=== PATIENT | male | born 1955 | race Caucasian/White ===

== ENCOUNTER 2021-03-03 12:45 | Emergency (ER) | payer MEDICARE ==
[~2021-03-03] VITALS: Ht 180.3 cm; Wt 104.3 kg
[2021-03-03] MEDS ORDERED: CASIRIVIMAB/IMDEVIMAB 10 ML in SODIUM CHLORIDE 0.9% 100 ML IV ONE (13:00)
[2021-03-03] MEDS ORDERED: TESSALON PERLE100 MG PO (13:54)
[2021-03-03] MEDS ORDERED: PROAIR DIGIHAL90 MCG INH (13:59)
== END 2021-03-03 14:00 | disposition home or self-care (01) ==
LOC: ER 12:55
DX: U07.1 COVID-19 (principal); I10 Essential (primary) hypertension; E11.9 Type 2 diabetes mellitus without complications; K21.9 Gastro-esophageal reflux disease without esophagitis
CPT/HCPCS: 99283

== ENCOUNTER → 2024-12-07 | Day surgery (SDC) | payer MEDICARE ==
[2024-11-28 08:50] LABS: BASOPHILS % 0.5 % (0.0-1.0); EOSINOPHILS % 3.3 % (0.0-6.0); LYMPHOCYTES % 16.2 % (18.0-39.1); MONOCYTES % 11.1 % (4.4-11.3); NEUTROPHILS % 68.5 % (38.7-80.0); RED CELL DISTRIBUTION WIDTH 13.9 % (11.7-14.4)
[~2024-12-07] MED LIST: ACETAMINOPHEN 1000 MG/100 ML 100 ML IV ONE; CIPROFLOXACIN500 MG PO; DEXAMETHASONE SOD PHOS INJ 4 MG/ML SDV ONE; DIALYVITE 800800 MCG; FARXIGA10 MG; FENTANYL CITRATE/PF 100MCG/2 ML INJ ONE; GLIPIZIDE5 MG PO; GLUCAGON FOR INJ 1 MG VIAL ONE; HYDROMORPHONE 2MG/ML ONE; HYOSCYAMINE SULFATE 0.5 MG/ML INJ ONE; KETOROLAC TROMETHAMINE 30 MG/ML VIAL ONE; LANTUS 3ML100 UNITS/ SC; LIDOCAINE HCL 2% LOCAL INJ 5 ML SDV VIAL INJ ONE; LOSARTAN POTAS100 MG PO; METFORMIN HCL500 MG PO; METOCLOPRAMIDE HCL 10 MG/2ML VIAL ONE; METRONIDAZOLE500 MG PO; MIDAZOLAM HCL 2 MG/2 ML VIAL ONE; NIFEDIPINE10 MG PO; ONDANSETRON HCL INJ 2MG/ML 2ML 2 MG/ML VIAL ONE; PANTOPRAZOLE SO40 MG PO; PROAIR DIGIHAL90 MCG INH; PROPOFOL IV EMULSION 10 MG/ML 20 ML VIAL ONE; PROPOFOL IV EMULSION 50 ML IV ONE; PROTONIX20 MG PO; ROCURONIUM BROMIDE 1 ML IV ONE; SIMVASTATIN40 MG PO; SODIUM BICARBO650 MG PO; SUGAMMADEX SODIUM 200 MG/2 ML VIAL IV ONE; TESSALON PERLE100 MG PO
[2024-12-07] MEDS: LACTATED RINGER'S 1,000 ML BAG IV ONE (08:37)
[2024-12-07 10:58] VITALS: BP 119/67; PULSE 77; RESP 18; O2SAT 97
== END | disposition home or self-care (01) ==
LOC: OR 07:33
PROVIDERS: ATTEND Internal Medicine Gastroenterology
DX: K21.9 Gastro-esophageal reflux disease without esophagitis (principal); D12.3 Benign neoplasm of transverse colon; D12.4 Benign neoplasm of descending colon; K29.70 Gastritis, unspecified, without bleeding; K31.89 Other diseases of stomach and duodenum; K20.90 Esophagitis, unspecified without bleeding; K44.9 Diaphragmatic hernia without obstruction or gangrene; K57.30 Diverticulosis of large intestine without perforation or abscess without bleeding; K64.8 Other hemorrhoids; Z98.84 Bariatric surgery status; G47.33 Obstructive sleep apnea (adult) (pediatric); E11.9 Type 2 diabetes mellitus without complications; I45.10 Unspecified right bundle-branch block; I10 Essential (primary) hypertension; Z71.89 Other specified counseling; E78.5 Hyperlipidemia, unspecified; Z01.810 Encounter for preprocedural cardiovascular examination; Z01.812 Encounter for preprocedural laboratory examination; Z79.84 Long term (current) use of oral hypoglycemic drugs; Z79.85 Long-term (current) use of injectable non-insulin antidiabetic drugs; Z79.4 Long term (current) use of insulin; Z79.899 Other long term (current) drug therapy; Z68.30 Body mass index [BMI] 30.0-30.9, adult; Z71.3 Dietary counseling and surveillance; Z91.81 History of falling; Z85.828 Personal history of other malignant neoplasm of skin
CPT/HCPCS: 36415 ×2; 43239; 45385; 82948; 85025; 93005; J1610; J1980; J2003; J2470; J2704; J2765; J3010; J7121; 45378; J1100; J1171; J1885; J2250; J2405

== ENCOUNTER 2024-12-08 09:10 | Inpatient (IN) | payer MEDICARE ==
[~2024-12-08] VITALS: Ht 180.3 cm; Wt 93.2 kg
[~2024-12-08 09:10] MED LIST changes: -ACETAMINOPHEN 1000 MG/100 ML 100 ML IV ONE; -CIPROFLOXACIN500 MG PO; -DEXAMETHASONE SOD PHOS INJ 4 MG/ML SDV ONE; -FENTANYL CITRATE/PF 100MCG/2 ML INJ ONE; -GLUCAGON FOR INJ 1 MG VIAL ONE; -HYDROMORPHONE 2MG/ML ONE; -HYOSCYAMINE SULFATE 0.5 MG/ML INJ ONE; -KETOROLAC TROMETHAMINE 30 MG/ML VIAL ONE; -LANTUS 3ML100 UNITS/ SC; -LIDOCAINE HCL 2% LOCAL INJ 5 ML SDV VIAL INJ ONE; -METOCLOPRAMIDE HCL 10 MG/2ML VIAL ONE; -METRONIDAZOLE500 MG PO; -MIDAZOLAM HCL 2 MG/2 ML VIAL ONE; -ONDANSETRON HCL INJ 2MG/ML 2ML 2 MG/ML VIAL ONE; -PROPOFOL IV EMULSION 10 MG/ML 20 ML VIAL ONE; -PROPOFOL IV EMULSION 50 ML IV ONE; -ROCURONIUM BROMIDE 1 ML IV ONE; -SODIUM BICARBO650 MG PO; -SUGAMMADEX SODIUM 200 MG/2 ML VIAL IV ONE
[2024-12-08 09:39] LABS: BASOPHILS % 0.2 % (0.0-1.0); EOSINOPHILS % 0.0 % (0.0-6.0); LYMPHOCYTES % 1.5 % (18.0-39.1); MONOCYTES % 8.6 % (4.4-11.3); NEUTROPHILS % 89.2 % (38.7-80.0); RED CELL DISTRIBUTION WIDTH 13.6 % (11.7-14.4)
[2024-12-08] MEDS: SODIUM CHLORIDE 0.9% 1000ML 1,000 ML IV STA ×3 (09:46→11:04)
[2024-12-08] MEDS: ONDANSETRON HCL INJ 2MG/ML 2ML 2 MG/ML VIAL IV STA (09:47)
[2024-12-08 09:50] LABS: INR 0.94
[2024-12-08 09:52] LABS: EST GLOMERULAR FILTRATION RATE 30.0 ML/MIN (>=60)
[2024-12-08 10:29] LABS: ABG BASE EXCESS -15.0 mmol/L (-2 - 3); ABG HCO3 12 mmol/L (22-26); ABG OXYGEN SATURATION 99.0 % (95-98); ABG PCO2 25 mmHg (35-45); ABG PH 7.29 (7.35-7.45); ABG PO2 100 mmHg (80-105); ABG TCO2 13
[2024-12-08] MEDS ORDERED: DEXTROSE 50% SYRINGE 50 ML IV PRN ×2 (10:45→17:30)
[2024-12-08] MEDS ORDERED: INSULIN REGULAR, HUMAN 3ML VL 100 UNIT in SODIUM CHLORIDE 0.45% 100 ML 100 ML IV SCH (10:45)
[2024-12-08] MEDS: INSULIN REGULAR, HUMAN 100 UNIT/1 ML IV ONE (11:19)
[2024-12-08] MEDS ORDERED: ONDANSETRON HCL INJ 2MG/ML 2ML 2 MG/ML VIAL IV PRN ×2 (11:45→17:30)
[2024-12-08 11:52] LABS: BAND NEUTROPHILS % (MANUAL) 7 %; LYMPHOCYTES % (MANUAL) 1 % (19-48); MONOCYTES % (MANUAL) 4 % (3.4-9.0); NEUTROPHILS % (MANUAL) 88 % (40-74); PLATELET ESTIMATE ADEQUATE; PLATELET MORPHOLOGY COMMENT NORMAL; RBC MORPHOLOGY COMMENT NORMAL
[2024-12-08] MEDS ORDERED: SODIUM BICARBONATE 8.4% SYRING 50 ML in SODIUM CHLORIDE 0.45% 1,000 ML IV SCH (12:00)
[2024-12-08] MEDS ORDERED: METRONIDAZOLE 500MG/NS 100ML 100 ML IV SCH (12:00)
[2024-12-08 13:02] LABS: LEUKOCYTE ESTERASE ,URINE NEGATIVE (NEGATIVE); PROTEIN,URINE DIPSTICK 1+ (NEGATIVE)
[2024-12-08 13:03] LABS: URINE UROBILINOGEN 0.2 mg/dL (0.2 - 1)
[2024-12-08 13:10] LABS: EPITHELIAL CELLS,URINE FEW /LPF; WBC,URINE (MAN) 0-5 /HPF (0-5)
[2024-12-08] MEDS: METRONIDAZOLE 500MG/NS 100ML 100 ML IV SCH (14:35)
[2024-12-08 14:44] VITALS: TEMP 97.6
[2024-12-08] MEDS: SODIUM BICARBONATE 8.4% SYRING 50 ML in SODIUM CHLORIDE 0.45% 1,000 ML IV SCH (16:46)
[2024-12-08] MEDS: SODIUM CHLORIDE 0.9% 500ML 500 ML IV ONE (17:11)
[2024-12-08] MEDS ORDERED: SIMETHICONE 80 MG CHEW PO PRN (17:30)
[2024-12-08] MEDS ORDERED: ALBUTEROL/IPRATROPIUM 3 ML NEB NEB PRN (17:30)
[2024-12-08] MEDS ORDERED: DOCUSATE SODIUM 100 MG CAP PO PRN (17:30)
[2024-12-08] MEDS ORDERED: HYDRALAZINE HCL 20 MG/ML VIAL IV PRN (17:30)
[2024-12-08] MEDS ORDERED: BENZONATATE 100 MG CAP PO PRN (17:30)
[2024-12-08] MEDS ORDERED: DIPHENHYDRAMINE HCL 25 MG CAP PO PRN (17:30)
[2024-12-08] MEDS ORDERED: MELATONIN 5 MG TABLET PO PRN (17:30)
[2024-12-08] MEDS: NIFEDIPINE CR 30 MG TAB PO SCH (18:47)
[2024-12-08 18:52] VITALS: PULSE 110; RESP 18
[2024-12-08] MEDS: SIMVASTATIN 40 MG TAB PO SCH (21:00)
[2024-12-09] VITALS (27 sets, daily range): BP systolic 115–169; BP diastolic 57–76; PULSE 86–115; RESP 16–36; TEMP 97.9–98.6; O2SAT 89–99
[2024-12-09] MEDS: ACETAMINOPHEN 325 MG TAB PO PRN (08:00)
[2024-12-09] MEDS: PANTOPRAZOLE SOD 40 MG TABEC PO SCH (08:00)
[2024-12-09 08:22] LABS: BASOPHILS % 0.1 % (0.0-1.0); EOSINOPHILS % 0.0 % (0.0-6.0); LYMPHOCYTES % 1.3 % (18.0-39.1); MONOCYTES % 5.5 % (4.4-11.3); NEUTROPHILS % 91.4 % (38.7-80.0); RED CELL DISTRIBUTION WIDTH 14.1 % (11.7-14.4)
[2024-12-09 08:37] LABS: CHOL/HDL RATIO 2.4 (3.9-4.7); EST GLOMERULAR FILTRATION RATE 38.0 ML/MIN (>=60); LDL CHOLESTEROL 55.0 MG/DL (60-130)
[2024-12-09] MEDS ORDERED: LOSARTAN POTASSIUM 100 MG TAB PO SCH (09:00)
[2024-12-09] MEDS: POTASSIUM CHLORIDE 10MEQ/100ML 200 ML IV ONE (09:28)
[2024-12-09] MEDS ORDERED: HYDROCODONE/APAP 5MG-325MG TAB PO PRN (11:30)
[2024-12-09] MEDS ORDERED: ONDANSETRON HCL INJ 2MG/ML 2ML 2 MG/ML VIAL IV PRN (11:30)
[2024-12-09] MEDS ORDERED: Morphine 4mg INJECTION 4 MG/ML INJ IV PRN (11:45)
[2024-12-09] MEDS: LACTATED RINGER'S 1,000 ML INJ SCH (12:08)
[2024-12-09] MEDS: POTASSIUM CHLORIDE 20 MEQ TAB CR PO PRN (12:11)
[2024-12-09] MEDS: INSULIN REGULAR, HUMAN 3ML VL 100 UNIT in SODIUM CHLORIDE 0.9% 99 ML IV PRN (12:18)
[2024-12-09] MEDS: ENOXAPARIN SOD INJ 40 MG/0.4 ML SYR SC SCH (17:24)
[2024-12-09 17:44] LABS: EST GLOMERULAR FILTRATION RATE 34.0 ML/MIN (>=60)
[2024-12-10] VITALS (24 sets, daily range): BP systolic 100–135; BP diastolic 51–74; PULSE 70–116; RESP 22–36; TEMP 97.8–98.4; O2SAT 90–99
[2024-12-10 05:12] LABS: BASOPHILS % 0.3 % (0.0-1.0); EOSINOPHILS % 0.3 % (0.0-6.0); LYMPHOCYTES % 6.1 % (18.0-39.1); MONOCYTES % 6.9 % (4.4-11.3); NEUTROPHILS % 86.1 % (38.7-80.0); RED CELL DISTRIBUTION WIDTH 14.4 % (11.7-14.4)
[2024-12-10 05:54] LABS: EST GLOMERULAR FILTRATION RATE 34.0 ML/MIN (>=60)
[2024-12-10] MEDS: POTASSIUM CHLORIDE 20MEQ/100ML 100 ML IV ONE (08:34)
[2024-12-10 10:47] LABS: EOSINOPHILS % (MANUAL) 1 % (0-7); LYMPHOCYTES % (MANUAL) 6 % (19-48); MONOCYTES % (MANUAL) 6 % (3.4-9.0); NEUTROPHILS % (MANUAL) 87 % (40-74)
[2024-12-10 10:48] LABS: PLATELET ESTIMATE ADEQUATE; PLATELET MORPHOLOGY COMMENT NORMAL
[2024-12-10 15:32] LABS: EST GLOMERULAR FILTRATION RATE 32.0 ML/MIN (>=60)
[2024-12-10] MEDS ORDERED: DEXTROSE 50% SYRINGE 50 ML IV PRN (16:45)
[2024-12-10 17:42] LABS: T3 UPTAKE 40.95 % (22.5-37.0)
[2024-12-11] VITALS (25 sets, daily range): BP systolic 107–141; BP diastolic 50–86; PULSE 60–102; RESP 18–30; TEMP 97.5–98.8; O2SAT 86–98
[2024-12-11] MEDS: INSULIN REGULAR, HUMAN 3ML VL 100 UNIT in SODIUM CHLORIDE 0.9% 100 ML IV SCH (07:28)
[2024-12-11 08:38] LABS: BASOPHILS % 0.4 % (0.0-1.0); EOSINOPHILS % 4.9 % (0.0-6.0); LYMPHOCYTES % 6.0 % (18.0-39.1); MONOCYTES % 9.0 % (4.4-11.3); NEUTROPHILS % 79.3 % (38.7-80.0); RED CELL DISTRIBUTION WIDTH 14.6 % (11.7-14.4)
[2024-12-11 08:54] LABS: EST GLOMERULAR FILTRATION RATE 32.0 ML/MIN (>=60)
[2024-12-11] MEDS: DEXTROSE 5%/0.45% SOD CHL 1,000 ML IV ONE (15:44)
[2024-12-11] MEDS: ARTIFICIAL TEARS (OPTH) 15 ML BTL OU SCH (16:23)
[2024-12-11] MEDS ORDERED: DEXTROSE 5%/0.45% SOD CHL 1,000 ML IV SCH (16:45)
[2024-12-11] MEDS: SODIUM BICARBONATE 650 MG TAB PO SCH (16:49)
[2024-12-11] MEDS ORDERED: DEXTROSE 5%/0.45% SOD CHL 1,000 ML IV ONE (18:45)
[2024-12-11] MEDS: INSULIN GLARGINE 100 UNITS/ML VIAL SQ SCH (20:08)
[2024-12-12] VITALS (12 sets, daily range): BP systolic 99–132; BP diastolic 62–80; PULSE 56–81; RESP 22–38; TEMP 97.9–98.7; O2SAT 87–94
[2024-12-12] MEDS: DEXTROSE 5%/0.45% SOD CHL 1,000 ML IV SCH (04:30)
[2024-12-12 06:33] LABS: BASOPHILS % 0.3 % (0.0-1.0); EOSINOPHILS % 6.8 % (0.0-6.0); LYMPHOCYTES % 9.4 % (18.0-39.1); MONOCYTES % 11.1 % (4.4-11.3); NEUTROPHILS % 72.1 % (38.7-80.0); RED CELL DISTRIBUTION WIDTH 14.2 % (11.7-14.4)
[2024-12-12 06:53] LABS: EST GLOMERULAR FILTRATION RATE 36.0 ML/MIN (>=60)
[2024-12-12] MEDS: POTASSIUM CHLORIDE 20 MEQ TAB CR PO ONE (11:21)
[2024-12-12] MEDS: INSULIN LISPRO 100 UNIT/1 ML 3ML VIAL SQ ONE (14:22)
[2024-12-12] MEDS ORDERED: LANTUS 3ML100 UNITS/ SC (14:32)
[2024-12-12] MEDS ORDERED: SODIUM BICARBO650 MG PO (14:32)
[2024-12-12] MEDS ORDERED: METRONIDAZOLE500 MG PO (14:32)
[2024-12-12] MEDS ORDERED: CIPROFLOXACIN500 MG PO (14:32)
[2024-12-12] MEDS ORDERED: INSULIN GLARGINE 100 UNITS/ML VIAL SQ SCH (21:00)
== END 2024-12-12 16:40 | disposition home or self-care (01) | DRG 853 ==
LOC: ER 09:34 → ERHOLD 11:43 → ICU 21:19
PROVIDERS: ADMIT Family Medicine Adult Medicine; ATTEND Family Medicine Adult Medicine
PROC: 3E03329 Introduction of Other Anti-infective into Peripheral Vein, Percutaneous Approach (ICD-10-PCS; 2024-12-08)
PROC: 4A033R1 Measurement of Arterial Saturation, Peripheral, Percutaneous Approach (ICD-10-PCS; 2024-12-08)
PROC: 0DNU4ZZ Release Omentum, Percutaneous Endoscopic Approach (ICD-10-PCS; 2024-12-09)
PROC: 0FT44ZZ Resection of Gallbladder, Percutaneous Endoscopic Approach (ICD-10-PCS; principal; 2024-12-09 10:11)
DX: A41.9 Sepsis, unspecified organism (principal); E11.10 Type 2 diabetes mellitus with ketoacidosis without coma; R65.21 Severe sepsis with septic shock; N17.0 Acute kidney failure with tubular necrosis; K80.00 Calculus of gallbladder with acute cholecystitis without obstruction; K86.2 Cyst of pancreas; K82.A1 Gangrene of gallbladder in cholecystitis; K66.0 Peritoneal adhesions (postprocedural) (postinfection); E11.22 Type 2 diabetes mellitus with diabetic chronic kidney disease; I12.9 Hypertensive chronic kidney disease with stage 1 through stage 4 chronic kidney disease, or unspecified chronic kidney disease; N18.32 Chronic kidney disease, stage 3b; T38.3X5A Adverse effect of insulin and oral hypoglycemic [antidiabetic] drugs, initial encounter; Y92.009 Unspecified place in unspecified non-institutional (private) residence as the place of occurrence of the external cause; J98.01 Acute bronchospasm; E87.6 Hypokalemia; E11.319 Type 2 diabetes mellitus with unspecified diabetic retinopathy without macular edema; Z79.84 Long term (current) use of oral hypoglycemic drugs; K44.9 Diaphragmatic hernia without obstruction or gangrene; Z79.85 Long-term (current) use of injectable non-insulin antidiabetic drugs; K21.9 Gastro-esophageal reflux disease without esophagitis; G47.33 Obstructive sleep apnea (adult) (pediatric); H54.61 Unqualified visual loss, right eye, normal vision left eye; Z98.84 Bariatric surgery status; Z86.0100 Personal history of colon polyps, unspecified; Z79.899 Other long term (current) drug therapy
CPT/HCPCS: 36415; 36600; 71045; 74176; 80048; 80053; 80061; 80076; 81001; 82550; 82805; 82948; 83036; 83605; 83690; 83735; 84436; 84443; 84479; 84484; 85025; 85610; 85730; 87040; 87086; 88304; 93005; 94799; 99284; J1650; J1815; J2405; J2470; J2543; J3480; J7030; J7040; J7050